=== PATIENT | female | born 1945 | race Caucasian/White ===

== ENCOUNTER 2017-05-09 08:53 | Outpatient (CLI) | payer MEDICARE, BC ==
[2017-05-09] MEDS ORDERED: Gadobenate Dimeglumine 529 MG/1 ML (20ML VIAL) ONE (09:00)
[2017-05-09 11:04] LABS: Anion Gap 14 mmol/L (10-20); BUN (Urea Nitrogen) 20 mg/dL (9.8-20.1); Calc. Creatinine Clearance 0 mL/min (70-130); Calcium 9.8 mg/dL (7.8-10.44); Carbon Dioxide 28 mmol/L (23-31); Chloride 103 mmol/L (98-107); Estimated GFR-MDRD 65
[2017-05-09 13:41] LABS: Hemoglobin A1c 6.1 % (4.0-6.0)
--- NOTE | 2017-05-09 15:57 | MRI ---
MRI THORACIC SPINE: TECHNIQUE: Multiplanar, multisequence, pre and [id number] MRI images thoracic spine are obtained. HISTORY: G96.19, epidural mass. FINDINGS: Images demonstrate a posterior enhancing epidural mass measuring approximately 2.9 cm in length exte nding from the superior aspect of the T1 epidural space inferiorly to the mid T2 epidural space. Ma ximum axial measurement measured 2.0 cm in the coronal plane and 0.8 cm in the AP plane. The lesion has decreased signal on T2 weighted sequences. It demonstrates definite enhancement on the T1 weig hted sequences with what appears to be a possible enhancing tail. The lesion appears to compress th e posterior thecal sac anteriorly. Due to its acute angle with the adjacent epidural fat, this lesi on may be involving the posterior thecal sac and likely it is not within the thecal sac. Differenti al diagnosis for this lesion includes an extradural meningioma versus metastatic disease. The mass compresses the thecal sac anteriorly and compresses the spinal cord resulting in fairly severe centr al stenosis. Incidentally noted old compression fracture is also seen in the L1 vertebral level. Findings called to Dr. Freda Burt at 2:46 p.m. on 05/09/17. CODE CR POS: [facility]
== END 2017-05-09 08:54 | disposition home or self-care (01) ==
LOC: SCSMRI 08:53
PROVIDERS: ATTEND Internal Medicine
DX: G96.19 Other disorders of meninges, not elsewhere classified (principal); I10 Essential (primary) hypertension; R73.03 Prediabetes
CPT/HCPCS: 72157; 80048; 83036; A9579

== ENCOUNTER 2017-07-11 23:29 | Emergency (ER) | payer MEDICARE, BC ==
--- NOTE | 2017-07-12 07:09 | RAD ---
LEFT KNEE 4 VIEWS: Date: 07/11/17 COMPARISON: None. FINDINGS: Small joint effusion. No displaced fracture or malalignment. There is moderate tricompartmental osteo arthritis disease. IMPRESSION: 1. Moderate tricompartmental osteoarthrosis. No acute fracture or malalignment. 2. Small joint effusion likely sequelae of degenerative disease. POS: [facility]
== END 2017-07-12 00:19 | disposition home or self-care (01) ==
LOC: SCSER 23:29
DX: S83.92XA Sprain of unspecified site of left knee, initial encounter (principal); I10 Essential (primary) hypertension; J45.909 Unspecified asthma, uncomplicated; Z79.899 Other long term (current) drug therapy; X58.XXXA Exposure to other specified factors, initial encounter

== ENCOUNTER 2017-08-23 09:40 | Outpatient (CLI) | payer MEDICARE, BC | END 2017-08-23 09:41 | disposition home or self-care (01) | LOC: BICRAD 09:40 | PROVIDERS: ATTEND Internal Medicine | DX: M25.572 Pain in left ankle and joints of left foot (principal); M19.072 Primary osteoarthritis, left ankle and foot ==

== ENCOUNTER 2018-01-15 10:36 | Outpatient (CLI) | payer MEDICARE, BC | END 2018-01-15 10:37 | disposition home or self-care (01) | LOC: SCSMRI 10:36 | PROVIDERS: ATTEND Neurological Surgery | DX: M89.9 Disorder of bone, unspecified (principal) | CPT/HCPCS: 82565 ==

== ENCOUNTER 2018-03-11 08:46 | Outpatient (CLI) | payer MEDICARE, BC ==
--- NOTE | 2018-03-11 11:25 | MRI ---
MRI THORACIC SPINE WITH AND WITHOUT CONTRAST: Date: 03-11-18 History: 72-year-old female with G96.19 epidural mass. Comparison: 05-09-17 FINDINGS: From superior T1 level to mid/upper T2 level, there is an approximately 2.9 x 2.0 x 0.8 cm posterior extradural mass which is very hypointense on T2 WI, hypointense on T1 WI (signal intensity between th at of spinal cord and CSF), and with heterogeneous enhancement. Enhancing epidural tails extend super iorly and inferiorly from this mass. The mass extrinsically chronically anteriorly displaces and flat tens, deforms the spinal cord significantly. There is no associated syrinx or cord edema. At the rest of the levels of the thoracic spine there is no thecal sac stenosis. There is no mass in the neural foramina. There has been no significant interval change overall. IMPRESSION: 1. Posterior extradural, intraspinal mass at the upper thoracic spine, chronically compressing the up per thoracic spinal cord. 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 2. No interval change since 05-09-17. POS: [facility]
== END 2018-03-11 08:47 | disposition home or self-care (01) ==
LOC: TBSIIMAG 08:46
PROVIDERS: ATTEND Neurological Surgery
DX: M48.9 Spondylopathy, unspecified (principal); M48.8X4 Other specified spondylopathies, thoracic region
CPT/HCPCS: 72157; 82565

== ENCOUNTER 2020-01-25 16:29 | Outpatient (CLI) | payer MEDICARE, BC ==
--- NOTE | 2020-01-25 16:44 | RAD ---
EXAM: Chest 2 views: HISTORY: Shortness of breath COMPARISON: None. FINDINGS: There is a normal-sized cardiomediastinal silhouette. There is no evidence of consolidation, mass, or pleural effusion. The bones are unremarkable. IMPRESSION: No evidence of acute cardiopulmonary disease
== END 2020-01-25 16:30 | disposition home or self-care (01) ==
LOC: BICRAD 16:29
PROVIDERS: ATTEND Internal Medicine
DX: R06.02 Shortness of breath (principal)
CPT/HCPCS: 71046

== ENCOUNTER 2020-11-27 00:29 | Emergency (ER) | payer MEDICARE, BC ==
[2020-11-27] MEDS ORDERED: Ondansetron PF 4 MG/2 ML Vial ONE (01:03)
[2020-11-27 01:41] LABS: #Basophils 0.1 thou/uL (0.0-0.2); #Eosinphils 0.5 thou/uL (0.0-0.7); #Lymphocytes 2.4 thou/uL (1.20-3.40); #Monocytes 0.7 thou/uL (0.11-0.59); #Neutrophils 5.9 thou/uL (1.40-6.50); %Basophils 0.5 % (0.0-1.0); %Eosinophils 5.4 % (0.0-10.0); %Lymphocytes 25.5 % (21.0-51.0); %Monocytes 7.1 % (0.0-10.0); %Neutrophils 61.4 % (42.0-75.0); Hemoglobin 12.6 g/dL (12.0-16.0); Mean Corpuscular Hemoglobin 31.3 pg (27.0-31.0); Mean Platelet Volume 7.7 fL (7.4-10.4); Platelet Count 205 thou/uL (130-400); Red Blood Cell (RBC) Count 4.02 mill/uL (4.20-5.40); White Blood Cell (WBC) Count 9.6 thou/uL (4.8-10.8)
[2020-11-27 02:03] LABS: ALT (SGPT) 13 U/L (8-55); AST (SGOT) 22 U/L (5-34); Albumin 3.9 g/dL (3.4-4.8); Alkaline Phosphatase 75 U/L (40-110); Anion Gap 17 mmol/L (10-20); BUN (Urea Nitrogen) 22 mg/dL (9.8-20.1); Calc. Creatinine Clearance 0 mL/min (70-130); Calcium 9.2 mg/dL (7.8-10.44); Carbon Dioxide 20 mmol/L (23-31); Chloride 109 mmol/L (98-107); Globulin 2.8 g/dL (2.4-3.5); Glucose 149 mg/dL (83-110); Potassium 3.7 mmol/L (3.5-5.1); Protein, Total 6.7 g/dL (5.8-8.1); Sodium 142 mmol/L (136-145)
== END 2020-11-27 02:45 | disposition home or self-care (01) ==
LOC: ERS 00:29
DX: R11.2 Nausea with vomiting, unspecified (principal); R00.2 Palpitations; K21.9 Gastro-esophageal reflux disease without esophagitis; I10 Essential (primary) hypertension; Z79.899 Other long term (current) drug therapy
CPT/HCPCS: 36415; 71045; 80053; 84484; 85025; 93005; 96374; J2405

== ENCOUNTER 2021-09-22 13:34 | Outpatient (CLI) | payer MEDICARE, BC | END 2021-09-22 13:35 | disposition home or self-care (01) | LOC: BICMAMMO 13:34 | PROVIDERS: ATTEND Internal Medicine | DX: Z12.31 Encounter for screening mammogram for malignant neoplasm of breast (principal); Z91.89 Other specified personal risk factors, not elsewhere classified | CPT/HCPCS: 77063; 77067 ==

== ENCOUNTER 2021-10-12 10:13 | Outpatient (CLI) | payer MEDICARE, BC | END 2021-10-12 10:14 | disposition home or self-care (01) | LOC: BICMAMMO 10:13 | PROVIDERS: ATTEND Internal Medicine | DX: Z13.820 Encounter for screening for osteoporosis (principal); Z78.0 Asymptomatic menopausal state; M81.0 Age-related osteoporosis without current pathological fracture | CPT/HCPCS: 77080 ==

== ENCOUNTER 2022-01-17 05:40 | Emergency (ER) | payer MEDICARE, BC ==
[2022-01-17] MEDS ORDERED: Ondansetron PF 4 MG/2 ML Vial ONE (05:48)
[2022-01-17 06:03] LABS: #Basophils 0.1 thou/uL (0.0-0.2); #Eosinphils 0.7 thou/uL (0.0-0.7); #Lymphocytes 2.6 thou/uL (1.20-3.40); #Monocytes 0.4 thou/uL (0.11-0.59); #Neutrophils 2.7 thou/uL (1.40-6.50); %Basophils 1.4 % (0.0-1.0); %Eosinophils 10.5 % (0.0-10.0); %Lymphocytes 40.3 % (21.0-51.0); %Monocytes 6.6 % (0.0-10.0); %Neutrophils 41.2 % (42.0-75.0); Hemoglobin 12.7 g/dL (12.0-16.0); Mean Corpuscular HGB CONC 33.9 g/dL (32.0-36.0); Mean Corpuscular Hemoglobin 31.5 pg (27.0-31.0); Mean Corpuscular Volume 92.8 fL (78.0-98.0); Mean Platelet Volume 7.3 fL (7.4-10.4); Platelet Count 211 thou/uL (130-400); RBC Distribution Width 11.8 % (11.5-14.5); Red Blood Cell (RBC) Count 4.04 mill/uL (4.20-5.40); White Blood Cell (WBC) Count 6.5 thou/uL (4.8-10.8)
[2022-01-17 06:23] LABS: ALT (SGPT) 16 U/L (8-55); AST (SGOT) 23 U/L (5-34); Albumin 3.9 g/dL (3.4-4.8); Alkaline Phosphatase 66 U/L (40-110); Anion Gap 14 mmol/L (10-20); BUN (Urea Nitrogen) 19 mg/dL (9.8-20.1); Bilirubin, Total 0.6 mg/dL (0.2-1.2); Calc. Creatinine Clearance 0 mL/min (70-130); Calcium 9.1 mg/dL (7.8-10.44); Carbon Dioxide 24 mmol/L (23-31); Chloride 105 mmol/L (98-107); Globulin 3.2 g/dL (2.4-3.5); Glucose 131 mg/dL (83-110); Lipase 23 U/L (8-78); Magnesium 1.6 mg/dL (1.6-2.6); Potassium 3.6 mmol/L (3.5-5.1); Protein, Total 7.1 g/dL (5.8-8.1); Sodium 139 mmol/L (136-145)
== END 2022-01-17 06:58 | disposition home or self-care (01) ==
LOC: ERS 05:40
DX: R11.0 Nausea (principal); I10 Essential (primary) hypertension; K21.9 Gastro-esophageal reflux disease without esophagitis; I25.2 Old myocardial infarction
CPT/HCPCS: 36415; 80053; 83690; 83735; 85025; 96374; J2405

== ENCOUNTER 2022-02-02 11:40 | Outpatient (CLI) | payer BC, MEDICARE | END 2022-02-02 11:41 | disposition home or self-care (01) | LOC: BICRAD 11:40 | PROVIDERS: ATTEND Internal Medicine | DX: M79.671 Pain in right foot (principal) ==

== ENCOUNTER 2022-12-25 14:20 | Outpatient (CLI) | payer MEDICARE, BC | END 2022-12-25 14:21 | disposition home or self-care (01) | LOC: ULT 14:20 | PROVIDERS: ATTEND Internal Medicine | DX: M79.89 Other specified soft tissue disorders (principal) | CPT/HCPCS: 76999 ==

== ENCOUNTER 2023-03-27 11:23 | Observation (INO) | payer MEDICARE, BC ==
[2023-03-27 11:55] LABS: #Eosinphils 0.8 thou/uL (0.0-0.7); #Monocytes 0.7 thou/uL (0.11-0.59); #Neutrophils 2.9 thou/uL (1.40-6.50); %Basophils 0.6 % (0.0-1.0); %Eosinophils 11.1 % (0.0-10.0); %Lymphocytes 37.4 % (21.0-51.0); %Monocytes 10.1 % (0.0-10.0); %Neutrophils 40.5 % (42.0-75.0); Hematocrit 35.5 % (36.0-47.0); Hemoglobin 12.3 g/dL (12.0-16.0); Mean Corpuscular HGB CONC 34.6 g/dL (32.0-36.0); Mean Corpuscular Hemoglobin 30.9 pg (27.0-31.0); Mean Corpuscular Volume 89.2 fl (78.0-98.0); Mean Platelet Volume 10.1 fL (7.4-10.4); Platelet Count 239 10x3/uL (130-400); RBC Distribution Width 12.9 % (11.5-14.5); Red Blood Cell (RBC) Count 3.98 mill/uL (4.20-5.40)
[2023-03-27 12:18] LABS: AST (SGOT) 28 U/L (5-34); Albumin 4.1 g/dL (3.4-4.8); Alkaline Phosphatase 64 U/L (40-110); Anion Gap 13 mmol/L (10-20); BUN (Urea Nitrogen) 17 mg/dL (9.8-20.1); Bilirubin, Total 0.7 mg/dL (0.2-1.2); Calc. Creatinine Clearance 0 mL/min (70-130); Calcium 9.2 mg/dL (7.8-10.44); Carbon Dioxide 21 mmol/L (23-31); Chloride 108 mmol/L (98-107); Estimated GFR 70; Globulin 2.9 g/dL (2.4-3.5); Glucose 129 mg/dL (83-110); Magnesium 1.9 mg/dL (1.6-2.6); Sodium 138 mmol/L (136-145)
[2023-03-27 12:22] LABS: Troponin I Less than 0.010 ng/mL (< 0.028)
[2023-03-27] MEDS ORDERED: hydrALAZINE 20 MG/ML VIAL SLOW IVP PRN (13:37)
[2023-03-27] MEDS ORDERED: Ondansetron ODT 4 MG TAB PO PRN (13:37)
[2023-03-27] MEDS ORDERED: Acetaminophen 325 MG TAB PO PRN (13:37)
[2023-03-27 13:54] LABS: ALT (SGPT) 20 U/L (8-55)
[2023-03-27] MEDS ORDERED: Aspirin 81 mg Enteric Coated Tablet PO SCH (14:00)
[2023-03-27 17:00] VITALS: BMI 30.7
[2023-03-27] MEDS ORDERED: Atorvastatin Calcium 40 MG TAB PO SCH (21:00)
[2023-03-28 05:21] LABS: Cardiac Risk 4.8 (Less than 4.5)
[2023-03-28] MEDS ORDERED: Lorazepam 0.5 MG TAB PO PRN (06:36)
[2023-03-28] MEDS ORDERED: Aspirin 81 mg Enteric Coated Tablet PO SCH (09:00)
[2023-03-28 12:37] VITALS: TEMP 97.3
[2023-03-28 16:23] VITALS: BP 191/109
== END 2023-03-28 16:55 | disposition home or self-care (01) ==
LOC: ERS 11:23 → 2SE 13:37
PROVIDERS: ADMIT Internal Medicine; ATTEND Family Medicine
DX: R42 Dizziness and giddiness (principal); I25.2 Old myocardial infarction; H35.719 Central serous chorioretinopathy, unspecified eye; E78.5 Hyperlipidemia, unspecified; I10 Essential (primary) hypertension; F41.9 Anxiety disorder, unspecified; Z88.1 Allergy status to other antibiotic agents; Z88.8 Allergy status to other drugs, medicaments and biological substances; Z79.82 Long term (current) use of aspirin; Z79.899 Other long term (current) drug therapy; Z96.652 Presence of left artificial knee joint
CPT/HCPCS: 70450; 71045; 80053; 80061; 83735; 83880; 84484; 85025; 93005; 93880; 96374; 99285; G0378 ×3; J0360; 36415

== ENCOUNTER 2024-07-27 14:41 | Emergency (ER) | payer MEDICARE, BC ==
[~2024-07-27 14:41] MED LIST: Iopamidol-370 76% 500 ML MDV (1 ML CHARGE) ONE
[2024-07-27] MEDS ORDERED: Aspirin Chewable 81 MG TAB ONE (15:15)
[2024-07-27 15:31] LABS: #Basophils 0.05 10x3/uL (0.0-0.2); %Basophils 0.8 % (0.0-1.0); %Eosinophils 3.8 % (0.0-10.0); %Lymphocytes 38.9 % (21.0-51.0); %Neutrophils 47.2 % (42.0-75.0); Hematocrit 33.3 % (36.0-47.0); Hemoglobin 11.2 g/dL (12.0-16.0); Mean Corpuscular HGB CONC 33.6 g/dL (32.0-36.0); Mean Corpuscular Hemoglobin 30.9 pg (27.0-31.0); Mean Corpuscular Volume 91.7 fL (78.0-98.0); Mean Platelet Volume 10.7 fL (7.4-10.4); Platelet Count 233 10x3/uL (130-400); RBC Distribution Width 13.2 % (11.5-14.5); Red Blood Cell (RBC) Count 3.63 mill/uL (4.20-5.40)
[2024-07-27 15:51] LABS: ALT (SGPT) 14 U/L (8-55); AST (SGOT) 25 U/L (5-34); Albumin 3.8 g/dL (3.4-4.8); Alkaline Phosphatase 60 U/L (40-110); Anion Gap 14 mmol/L (10-20); BUN (Urea Nitrogen) 26 mg/dL (9.8-20.1); Bilirubin, Total 1.2 mg/dL (0.2-1.2); Calc. Creatinine Clearance 0 mL/min (70-130); Calcium 9.7 mg/dL (7.8-10.44); Carbon Dioxide 23 mmol/L (23-31); Chloride 107 mmol/L (98-107); Estimated GFR 55; Glucose 106 mg/dL (83-110); INR-International Normal Ratio 1.1; PTT 28.4 sec (22.9-36.1); Potassium 3.6 mmol/L (3.5-5.1); Protein, Total 6.8 g/dL (5.8-8.1); Prothrombin Time 14.3 sec (12.0-14.7); Sodium 140 mmol/L (136-145)
[2024-07-27 15:54] LABS: Troponin I Less than 0.010 ng/mL (< 0.028)
== END 2024-07-27 17:50 | disposition home or self-care (01) ==
LOC: ERS 14:41
DX: H53.8 Other visual disturbances (principal); R29.700 NIHSS score 0; I10 Essential (primary) hypertension
CPT/HCPCS: 36415; 70450; 70496; 70498; 71045; 80053; 83880; 84484; 85025; 85610; 85730; 93005